=== PATIENT | female | born 2000 | race Two or more races ===

== ENCOUNTER 2020-07-20 19:23 | Emergency (ER) | payer OTHER ==
[~2020-07-20] VITALS: Ht 154.9 cm; Wt 50.8 kg
[2020-07-20] MEDS ORDERED: ANTICONCEPTIVOS (19:57)
[2020-07-20] MEDS ORDERED: TUSICOF CAPLET1 EACH PO (22:31)
== END 2020-07-20 22:39 | disposition home or self-care (01) ==
LOC: ER 19:23 → EMR PED 19:36 → ER 19:36 → EMR PED 22:39
DX: U07.1 COVID-19 (principal); R05 Cough